=== PATIENT | female | born 1970 | race Caucasian/White ===

== ENCOUNTER 2019-11-03 05:13 | Emergency (ER) | payer OTHER ==
--- NOTE | 2019-11-03 06:04 | EDM.PDOC ---
ED HPI GENERAL MEDICAL PROBLEM - General Chief Complaint: Gastrointestinal Problem Stated Complaint: BLOOD IN STOOL Time Seen by Provider: 11/03/19 05:55 Source of Information: Reports: Patient History Limitations: Reports: No Limitations - History of Present Illness INITIAL COMMENTS - FREE TEXT/NARRATIVE: Patient presents today for evaluation of bloody diarrhea which began early this morning. When she went to bed last night she felt fine. Approximately 0100 hrs. , the patient was awakened with some abdominal cramping and had a fairly soft stool. Later overnight, she had another diarrheal episode and that was frankly bloody. She has never had that happen before. She does have a long history of acid reflux and takes famotidine daily along with intermittent Pepto-Bismol depending on how she feels. Within the last week, her acid reflux symptoms seem worse than usual with a sense of bloating and more increased upper abdominal pain. A little bit of nausea but no vomiting. No fever or chills. No one else ill around her. Onset: Sudden Duration: Hour(s): (Four) Location: Reports: Abdomen Quality: Reports: Ache, Pressure Severity: Moderate Improves with: Reports: None Worsens with: Reports: None Associated Symptoms: Denies: Loss of Appetite Abdomen Pain Score (Numeric/FACES): 7 - Related Data Allergies Allergy/AdvReac Type Severity Reaction Status Date / Time levofloxacin [From Levaquin] Allergy Swollen Verified 11/03/19 05:30 Tongue Home Meds: Home Meds Famotidine [Pepcid] 20 mg PO DAILY 11/03/19 [History] Levothyroxine [Synthroid] 50 mcg PO DAILY 11/03/19 [History] clonazePAM [Clonazepam] 0.5 mg PO TID PRN 11/03/19 [History] Past Medical History HEENT History: Reports: Impaired Vision Gastrointestinal History: Reports: GERD [employer] History: Reports: Endocrine/Metabolic History: Reports: Hypothyroidism Social & Family History - Tobacco Use Smoking Status *Q: Never Smoker Second Hand Smoke Exposure: No - Caffeine Use Caffeine Use: Reports: None - Recreational Drug Use Recreational Drug Use: No ED ROS GENERAL - Review of Systems Review Of Systems: See Below Constitutional: Reports: No Symptoms Respiratory: Reports: No Symptoms Cardiovascular: Reports: No Symptoms GI/Abdominal: Reports: Abdominal Pain, Bloody Stool. Denies: Black Stool Musculoskeletal: Reports: No Symptoms ED EXAM, GI/ABD - Physical Exam Exam: See Below Text/Narrative:: This is an adult female sitting comfortably appearing in a side chair of room 5. Exam Limited By: No Limitations General Appearance: Alert, Mild Distress Respiratory/Chest: No Respiratory Distress Cardiovascular: Regular Rate, Rhythm, Tachycardia GI/Abdominal Exam: Normal Bowel Sounds, Soft, Tender (Minimal upper abdominal pain.) Rectal (Female) Exam: Normal Rectal Tone, Heme + Stool Back Exam: Normal Inspection Skin Exam: Warm Course - Vital Signs Last Recorded V/S: Last Vital Signs Temp 37.0 C 11/03/19 05:36 Pulse 111 H 11/03/19 05:36 Resp 16 11/03/19 05:36 BP 150/84 H 11/03/19 05:36 Pulse Ox 99 11/03/19 05:36 - Orders/Labs/Meds Labs: Laboratory Tests 11/03/19 11/03/19 11/03/19 Range/Units 06:15 06:20 06:20 WBC 13.1 H (4.5-11.0) K/uL RBC 5.07 (3.30-5.50) M/uL Hgb 15.1 H (12.0-15.0) g/dL Hct 45.9 (36.0-48.0) % MCV 91 (80-98) fL MCH 30 (27-31) pg MCHC 33 (32-36) % Plt Count 309 (150-400) K/uL Neut % (Auto) 79 H (36-66) % Lymph % (Auto) 14 L (24-44) % [place] % (Auto) 6 (2-6) % Eos % (Auto) 0 L (2-4) % Baso % (Auto) 0 (0-1) % Sodium 136 L (140-148) mmol/L Potassium 3.7 (3.6-5.2) mmol/L Chloride 99 L (100-108) mmol/L Carbon Dioxide 23 (21-32) mmol/L Anion Gap 17.7 H (5.0-14.0) mmol/L BUN 16 (7-18) mg/dL Creatinine 1.1 H (0.6-1.0) mg/dL Est Cr Clr Drug Dosing 51.74 mL/min Estimated GFR (MDRD) 53 L (>60) Glucose 111 H (74-106) mg/dL Calcium 9.0 (8.5-10.1) mg/dL Total Bilirubin 0.6 (0.2-1.0) mg/dL AST 25 (15-37) U/L ALT 49 (12-78) U/L Alkaline Phosphatase 107 (46-116) U/L C-Reactive Protein 2.65 H (0.0-0.3) mg/dL Total Protein 8.1 (6.4-8.2) g/dL Albumin 3.6 (3.4-5.0) g/dL Globulin 4.5 H (2.3-3.5) g/dL Albumin/Globulin Ratio 0.8 L (1.2-2.2) Lipase 117 (73-393) U/L - Re-Assessments/Exams Free Text/Narrative Re-Assessment/Exam: 11/03/19 07:30 I reviewed lab studies which show hemoglobin of 15.1 and WBCs of 14,000. Is difficult to know what this may be from at this time? An infectious cause is possible although no one else around her is having similar symptoms. At this time, she prefers outpatient management. She is to avoid aspirin, nonsteroidal medications. Prescriptions sent for Septra DS, 10 tablets; ondansetron 4 mg, 15 tablets; tramadol 50 mg, 12 tablets; all use as directed. She needs to have her hemoglobin rechecked by midweek either in the clinic or through a return visit here. If the bloody stools or becoming more frequent, she should return here. Either way, she likely will need colonoscopy in the near or intermediate-term. Departure - Departure Time of Disposition: 07:25 Disposition: Home, Self-Care 01 Condition: Good Clinical Impression: Hematochezia - Discharge Information *PRESCRIPTION DRUG MONITORING PROGRAM REVIEWED*: Not Applicable *COPY OF PRESCRIPTION DRUG MONITORING REPORT IN PATIENT YOLANDA: Not Applicable Instructions: Bloody Diarrhea Referrals: PCP,None [Primary Care Provider] - Forms: ED Department Discharge Additional Instructions: Follow low residue diet as discussed. Do not take aspirin, Aleve, Advil or any other anti-inflammatory medication. Complete the antibiotic course as prescribed. Use nausea or pain medicine as discussed. If the bleeding does not settle down, he may need to have colonoscopy done sometime next week. You should definitely have your blood work rechecked by Tuesday or Tuesday of next week. Call your clinic team to see if they can arrange that. If symptoms are worsening, return here. Sepsis Event Note - Evaluation Sepsis Screening Result: No Definite Risk - Focused Exam Vital Signs: Vital Signs Temp Pulse Resp BP Pulse Ox 11/03/19 05:36 37.0 C 111 H 16 150/84 H 99 Date Exam was Performed: 11/03/19 Time Exam was Performed: 07:29
== END 2019-11-03 07:41 | disposition home or self-care (01) ==
LOC: JP.ED 05:13
DX: K92.1 Melena (principal); K21.9 Gastro-esophageal reflux disease without esophagitis; E03.9 Hypothyroidism, unspecified; Z88.8 Allergy status to other drugs, medicaments and biological substances; Z79.899 Other long term (current) drug therapy
CPT/HCPCS: 36415; 80053; 82270; 83690; 85025; 86140; 99283; 99284